=== PATIENT | male | born 1960 | race Caucasian/White ===

== ENCOUNTER 2017-06-20 00:36 | Inpatient (IN) | payer OTHER ==
[~2017-06-20] VITALS: Ht 162.6 cm; Wt 66.7 kg
[~2017-06-20 00:36] MED LIST: ASPI-484 PO; ATOR80TA PO; FENO145T2 PO; LISI-410 PO; METF10002 PO; OMEG1CAP2 PO
[2017-06-20] MEDS ORDERED: PHENERGAN PO ONE (06:00)
[2017-06-20] MEDS ORDERED: VALIUM PO ONE (06:00)
[2017-06-20] MEDS ORDERED: SUBLIMAZE ONE (06:02)
[2017-06-20] MEDS ORDERED: HEPARIN ONE ×2 (06:02→08:02)
[2017-06-20] MEDS ORDERED: VERSED ONE ×2 (06:02→08:39)
[2017-06-20] MEDS ORDERED: XYLOCAINE ONE (06:03)
[2017-06-20 06:10] VITALS: BP 176/100
[2017-06-20 06:15] VITALS: BP 164/98
[2017-06-20] MEDS: NS 1000ML 1,000 ML IV SCH ×3 (06:26→21:51)
[2017-06-20 06:35] LABS: BASOPHIL # 0.1 10^3/uL (0.0-0.1); BASOPHIL % 0.4 % (0.0-0.2); EOSINOPHIL # 0.1 10^3/uL (0.0-0.2); HEMOGLOBIN 15.3 g/dL (13.9-16.3); LYMPHOCYTES # 4.2 10^3/uL (1.0-4.8); LYMPHOCYTES % 33.5 % (24.0-44.0); MEAN CELL HGB 26.4 pg (26-34); MEAN CELL HGB CONCENTRATION 32.1 g/dL (33-37); MEAN CORP VOLUME 82.4 fL (78-100); MEAN PLATELET VOLUME 10.3 fL (7.8-11.0); MONOCYTES # 0.9 10^3/uL (0.3-0.8); MONOCYTES % 6.9 % (5.0-12.0); NEUTROPHIL # 7.1 10^3/uL (1.8-7.7); NEUTROPHILS % 57.4 % (41.0-85.0); RED CELL DISTRIBUTION WIDTH 15.2 % (11.5-14.5); WHITE BLOOD CELL 12.4 10^3/uL (4.5-11.0)
[2017-06-20] MEDS ORDERED: NITROGLYCERIN 25MG/D5W 250ML 250 ML IV ONE (07:55)
[2017-06-20] MEDS ORDERED: CALAN ONE (07:56)
[2017-06-20] MEDS ORDERED: BRILINTA ONE (08:30)
[2017-06-20] MEDS ORDERED: TUMS ONE (08:30)
[2017-06-20] MEDS ORDERED: ASPIRIN ONE (08:30)
[2017-06-20] MEDS ORDERED: LASIX ONE (08:42)
[2017-06-20] MEDS ORDERED: HEPARIN-D5W 20,000 UNIT/500 ML 500 ML IV ONE (08:43)
--- NOTE | 2017-06-20 12:25 | [facility] ---
DATE OF SERVICE: 06/20/2017 PRECATHETERIZATION DIAGNOSES: Abnormal myocardial perfusion scan with ischemic cardiomyopathy, inferoposterior moderate-sized ischemic substrate with global hypokinesis and 28-30% ejection fraction with RCA stenting and severe peripheral arterial disease with bypass surgery with intermittent claudication, both legs. POSTCATHETERIZATION DIAGNOSES: Left main is a fair size vessel, fully patent. LAD is a nondominant vessel, patent. Circumflex is a fair size vessel and is not a dominant vessel, appears to be patent. RCA is a very large dominant vessel with proximal 70% in-stent stenosis with distal posterior descending branch has got a focal 90% stenosis. Left ventricle is dilated with inferoposterior area of severe hypokinesis, anterior mild hypokinesis, ejection fraction of 28-30%. Descending aortic cineangiography shows a totally occluded aorta distally with total occlusion of both common iliacs with significant collateralization with filling of the bypass graft on the left side and subsequently collateralization through the mesenteric vessels and reconstitution of the SFA on the left side, but on the right side, there is only collaterals and panning was done up to the level of the knee and some reconstitution of the popliteal vessel was noted on the right side. Hence, severe peripheral arterial disease with collateralization with occlusion of the bypasses and severe distal ischemia. PCI was performed of the right coronary artery with distal primary stenting of the distal posterior descending branch, primary PCI with 2.25 mm x 12 mm stent placement and proximal PTCA with scoring balloon followed by stenting with 3.25 x 23 mm Xience proximal stent. Distal stent was also Alpine Xience stent. PREOPERATIVE MEDICATIONS: Phenergan 50 mg p.o., Valium 2.5 mg p.o., 3 mg of Versed and 37.5 mcg of fentanyl IV was given. NARRATION OF PROCEDURE: The procedure was done through the right radial approach and right radial artery was punctured with a micropuncture kit and a 6-Somali Nitinol sheath was introduced and a guidewire was introduced and subsequently a Fairdealing 6-Somali catheter was introduced over the guidewire into the ascending aorta and the selective cannulation of left coronary artery was achieved. Left coronary arteriography performed in NIUEAN and TERRY projection followed by subsequent cannulation of the right coronary artery and right coronary arteriography performed in the NIUEAN and AP projection. This catheter was then exchanged over the guidewire with a 6-Somali pigtail catheter, which was navigated across the aortic valve and left ventriculography was performed with 30 mL of Isovue at 12 mL per second at 600 PSI. Subsequently, a pigtail catheter was navigated down the descending aorta and descending aortic cineangiography was performed with 45 mL of Isovue at 25 mL per second. Descending aortic cineangiography was performed with panning up to the level of both SFAs. Subsequently, a guiding catheter, JR4 6-Somali right coronary Marycarmen catheter was introduced into the right coronary artery and PCI was performed by Dr. Oakley with a primary stenting of the distal posterior descending branch and subsequently scoring balloon PTCA of the proximal RCA followed by deployment of the stent. Good results were obtained. The patient tolerated the procedure well. Subsequently, T-band was placed on the right wrist. The patient received heparin. Total of 11,000 units of heparin was given and the ACT was maximum of 325 seconds, heparin drip at 800 units per hour was continued for 12 hours after the procedure. The patient sent to the floor. 20 of Lasix IV was given, LVEDP was about 10 mm, LV pressure was 130/ across the aorta. FINAL CONCLUSION: Patent left main, LAD, nondominant vessel, fully patent. Circumflex fair size vessel, fully patent. Large, dominant RCA with proximal in-stent 70% stenosis and distal posterior descending branch focal 90% stenosis with PCI performed with a scoring balloon PTCA of the proximal lesion followed by stenting with a 3.25 x 23 mm stent and distal 2.25 x 12 mm primary stenting of the posterior descending branch. The patient tolerated the procedure well. No complication of the procedure. Ayden Pratt MD DR: TONI/sweta JOB# [id number]
[2017-06-20] MEDS: NORCO 5MG PO PRN ×2 (12:43→23:45)
[2017-06-20] MEDS: HUMULIN R SQ SCH ×2 (12:56→17:08)
[2017-06-20] MEDS: LOVAZA PO SCH (12:58)
--- NOTE | 2017-06-20 13:01 | NUR ---
TR BAND REMOVAL 2CC REMOVED. NEGATIVE S/S BLEEDING NOTED.
[2017-06-20] MEDS: ZESTRIL PO SCH ×2 (13:19→16:25)
--- NOTE | 2017-06-20 13:21 | NUR ---
TR BAND REMOVAL 2CC REMOVED. NO S/S BLEEDING NOTED. MEDICATED WITH LISINOPRIL 20MG PO FOR BP 154/102. DAILY DOSAGE SKIPPED THIS AM FOR HEART CATH.
--- NOTE | 2017-06-20 13:45 | NUR ---
TR BAND REMOVAL 2CC REMOVED. NEGATIVE S/S BLEEDING NOTED.
--- NOTE | 2017-06-20 14:00 | NUR ---
TR BAND REMOVAL 2CC REMOVED. NEGATIVE S/S BLEEDING NOTED.
[2017-06-20 14:01] LABS: CALCIUM 9.7 mg/dL (8.4-10.5); CARBON DIOXIDE 25.1 mmol/L (20.0-32)
--- NOTE | 2017-06-20 14:15 | NUR ---
TR BAND REMOVAL 2CC REMOVED. NEGATIVE S/S BLEEDING NOTED.
--- NOTE | 2017-06-20 14:30 | NUR ---
TR BAND REMOVAL 2CC REMOVED. NEGATIVE S/S BLEEDING NOTED.
--- NOTE | 2017-06-20 14:45 | NUR ---
TR BAND REMOVAL 2CC REMOVED. NEGATIVE S/S BLEEDING NOTED.
--- NOTE | 2017-06-20 15:00 | NUR ---
TR BAND REMOVED. GAUZE PRESSURE DRESSING APPLIED AND COVERED WITH TRANSPARENT DRESSING. NEGATIVE S/S BLEEDING NOTED. INSTRUCTED TO LEAVE DRESSING IN PLACE X24 HOURS. INSTRUCTED TO REPORT BLEEDING IMMEDIATELY TO NURSE. INSTRUCTED TO AVOID LIFTING OVER 5 POUNDS FOR 5 DAYS, AVOID SUBMERGING ARM IN WATER AND AVOID PUSHING UP OFF BED WITH USE OF HAND. PATIENT VERBALIZES UNDERSTANDING. REPORT GIVEN TO FLORIAN FARIAS. CARE RELINQUISHED TO RN.
[2017-06-20] MEDS ORDERED: LASIX IV STA (16:16)
[2017-06-20 16:24] VITALS: BP 159/89
--- NOTE | 2017-06-20 16:30 | NUR ---
REPORT RECEIVED FROM NURSE SASKIA DU ON THE PT , PER NURSE SASKIA DU, DR. AMADOR WAS NOTIFIED REGARDING THE RAISING BLOOD PRESSURE OF PT, AROUND 1614 RECEIVED THE TELEPHONE ORDER VIA TEXT FROM DR. DAVALOS FOR LASIX 20 MG IV STAT, LISINOPRIL TO INCREASE TO 40 MG DAILY AND TO START TORSEAMINE 20 MG PO DAILY. ADMINSITERED LASIX PER ORDER AND 20 MG LISINOPRIL PT GOT 20 MG EARLIER THIS MORNING FOR NURSE SASKIA DU. LOBITO CONTINUE TO MONITOR THE Pt
--- NOTE | 2017-06-20 17:36 | NUR ---
REASSESSED BP IT IS 134/92 RIGHT NOW P 76, O2 SAT 95% RA.
[2017-06-20 19:00] VITALS: BP 153/82
[2017-06-20 19:27] VITALS: BP 147/72
[2017-06-20] MEDS ORDERED: LIPITOR PO SCH (21:00)
[2017-06-20] MEDS: COREG PO SCH (21:52)
[2017-06-20 23:41] VITALS: BP 153/82
[2017-06-21] VITALS: BP 147/72
[2017-06-21] MEDS ORDERED: ZESTRIL PO STA (00:04)
[2017-06-21 04:00] VITALS: BP 138/83
[2017-06-21] MEDS: NS 1000ML 1,000 ML IV SCH ×2 (06:00→10:03)
--- NOTE | 2017-06-21 06:30 | NUR ---
Report Received report and assumed care of pt
[2017-06-21] MEDS: HUMULIN R SQ SCH ×2 (07:18→11:30)
[2017-06-21 07:49] VITALS: BP 138/80
[2017-06-21] MEDS ORDERED: ASPIRIN EC PO SCH (09:00)
[2017-06-21] MEDS ORDERED: HEPARIN-D5W 20,000 UNIT/500 ML 500 ML IV ONE (09:00)
[2017-06-21] MEDS ORDERED: TRICOR PO SCH (09:00)
[2017-06-21] MEDS ORDERED: DEMADEX PO SCH (09:00)
[2017-06-21] MEDS ORDERED: ZESTRIL PO SCH ×2 (09:00)
[2017-06-21] MEDS ORDERED: PROTONIX PO SCH (09:00)
[2017-06-21] MEDS ORDERED: PLAVIX PO SCH (09:00)
[2017-06-21] MEDS: COREG PO SCH (09:57)
[2017-06-21] MEDS ORDERED: CLOP75TA PO (10:03)
[2017-06-21] MEDS ORDERED: LISI-410 PO (10:03)
[2017-06-21] MEDS ORDERED: CARV3.122 PO (10:03)
[2017-06-21] MEDS: NORCO 5MG PO PRN (10:03)
[2017-06-21] MEDS ORDERED: HYDR-926 PO (10:03)
[2017-06-21] MEDS ORDERED: ATOR40TA PO (10:03)
[2017-06-21] MEDS ORDERED: INSU100V5 SQ (10:03)
[2017-06-21] MEDS ORDERED: PANT40TA3 PO (10:03)
[2017-06-21] MEDS ORDERED: TORS20TA PO (10:03)
--- NOTE | 2017-06-21 10:59 | [facility] ---
DATE OF SERVICE: 06/20/2017 PROCEDURES PERFORMED: 1. Angioplasty of the RCA with scoring balloon and drug-eluting stent. 2. Primary angioplasty of the right PDA with primary stenting using drug-eluting stent. 3. Heparin infusion with ACT monitoring. COMPLICATIONS: None related to this procedure. INDICATIONS: Please refer to Dr. Ayden Pratt's operative report for indications, preoperative diagnoses and angiographic findings. In short, the patient is a 56-year-old gentleman, vasculopathic with extensive vascular and coronary artery disease. He was elected for coronary angiography and possible angioplasty by Dr. Pratt. DESCRIPTION OF PROCEDURE: Dr. Pratt performed a right radial access diagnostic coronary angiography, identifying a significant severe in-stent restenosis in the proximal RCA and a de tammy lesion in the proximal RPDA. Both were severe diseases. Those findings were consistent with abnormality on the stress test as per Dr. Pratt. Therefore, I was requested to assess in the interventional part of the procedure. At that point, heparin was given for therapeutic dose followed by advancing a 6-Salvadorean JR4 interventional catheter. A run-through wire was advanced across the RCA into the RPDA. The RPDA received a 2.25 x 12 Xience Alpine drug-eluting stent for angioplasty with excellent results and no complication with TIMI3 flow. The proximal RCA received treatment initially with 3.0 x 15 scoring balloon for primary angioplasty of severe in-stent restenosis around 80-85%. This was followed by the deployment of 3.25 x 23 Xience Alpine drug eluting stent with excellent results, no complication noted. There was damping effect with catheter engagement indicating the hemodynamic significance of the lesion which is also consistent with the finding on the nuclear imaging study. The case was concluded successfully with removal of wires and catheters and application of TR band at the right radial artery access site. ACT was therapeutic. The patient received antiplatelet therapy a loading dose. IMPRESSION: 1. Successful angioplasty of the right coronary artery as well as the RPDA using scoring balloon and 2 drug-eluting stents. 2. The procedure was well tolerated. RECOMMENDATIONS: 1. Dual antiplatelet therapy. 2. Optimize medical management for coronary artery disease therapy. 3. Further cardiac management and recommendation as per the discretion of Dr. Pratt. Thank you, Dr. Pratt for allowing me to participate in management of the patient. Bobo Oakley MD DR: Waldo JOB# [id number]
--- NOTE | 2017-06-21 11:33 | HPH ---
ADMIT DATE: 06/20/2017 CHIEF COMPLAINT: Post-PCI of the right coronary artery. HISTORY OF PRESENT ILLNESS: The patient is a 56-year-old white male who is a and came from the [facility], who has got peripheral arterial bypass surgery and prior old NM with underlying history of hypertension, hypertensive heart disease and non-insulin dependent diabetic and he had a very positive perfusion study with inferoposterior ischemic substrate with LV cavity dilatation and ischemic cardiomyopathy, low ejection fraction of 28-30% and probably needs an ICD because of chronic low systolic function, but he underwent cardiac catheterization and in-stent stenosis of the right coronary artery with almost 70% stenosis in the proximal RCA noted and distal posterior descending branch had a critical focal 90% stenosis and hence primary stenting of the distal posterior descending branch and scoring balloon dilatation followed by placement of the stent in the proximal RCA via right radial approach was done and patient was admitted in the hospital and observed. ALLERGIES: NONE KNOWN. MEDICATIONS: He goes to the [facility] and his medications have been very erratic in nature and he is not on any optimum medical therapy. He has been on Lipitor 80 mg once a day, Coreg 3.125 mg twice a day and Plavix 75 mg once a day, hydrocodone 5/325 one tablet q.4 hours p.r.n. and he is on sliding scale insulin coverage along with lisinopril 20 mg once a day and Protonix 40 mg once a day, torsemide 20 mg once a day and metformin 1 gram daily and aspirin 81 mg once a day, omega-3 and fenofibrate, I am not sure why he is on Lovaza, omega 3 along with fenofibrate, and high dose statin, Lipitor 80 mg once a day. PAST MEDICAL HISTORY: Peripheral arterial bypass surgery, he has got intermittent claudication and has got severe ischemia in the right leg worse than left and trophic changes in both feet due to severe peripheral ischemic manifestations and history of dyspnea and symptoms of shortness of breath and leg edema and chest heaviness, tightness and positive perfusion study. SOCIAL HISTORY: Prior history of almost [id number] history of smoking, no history of any ethanol abuse. FAMILY HISTORY: Positive for heart problems. My office notes show the details of all his past history in a chronological order and they are on the chart PHYSICAL EXAMINATION: GENERAL: He was alert, awake and oriented post-procedure. VITAL SIGNS: He has got a weight of 66 kilograms and height of 162 cm, BMI 25.2 and his pulse was 58-60, blood pressure was 130/70, respiration 18. HEENT: Unremarkable. NECK: No JVD, no carotid bruits. Poor general hygiene. LUNGS: Lungs were showing poor air entry bilaterally. HEART: Sounds S1, S2 normal. ABDOMEN: Soft, nontender, no organomegaly. Hemostasis achieved in the right wrist after the radial procedure. EXTREMITIES: Distal pulses were poorly felt and bruits were noted all over the abdomen because of his peripheral arterial disease and he has got paraumbilical bruits and bruits on both femorals and very poorly palpable femoral and distal pulses were poorly felt and has got ischemic trophic changes in both feet and some degree of muscle wasting is noted. NEUROLOGIC: No lateralizing motor deficit is documented. IMPRESSION: Post-PCI. PLAN: At this time, admit the patient to the hospital observation and continue dual antiplatelet therapy and because of the nature of the procedure, 12 hours of IV heparinization to be continued and further management depending on the clinical course. Ayden Pratt MD DR: TONI/sweta JOB# [id number]
[2017-06-21 11:37] VITALS: BP 156/93
[2017-06-21] MEDS: LOVAZA PO SCH (13:00)
--- NOTE | 2017-06-21 13:00 | NUR ---
DISCHARGE PLAN CM VISITED WITH PATIENT CONCERNING HIS DISCHARGE PLAN AND NEED. PATIENT STATED HE LIVES ALONE IN [place], [place] BUT HE HAS A GREAT FAMILY SUPPORT SYSTEM. HE STATED HE HAS JUST RECENTLY STARTED USING A WALKER WITH WHEELS DUE TO PAIN IN RT LEG. [facility] AND HIS PCP [facility] @ [facility] [place], [place]. PATIENT VOICED CONCERN REGARDING HIS NEW PRESCRIPTIONS VERSES COST. CM REACHED OUT TO THE [facility] @ [phone] AND SPOKE TO LIGIA. LIGIA STATED THAT DR. AMADOR'S OFFICE WOULD HAVE TO FAX AUTH# CHOICE FOR CARDIAC CATH AND NEW PRESCRIPTIONS TO [facility] IN ORDER FOR [facility] TO COVER MEDICATION COSTS. CM REACHED OUT TO DR. AMADOR'S AND SPOKE TO HIS NURSE CARISSA MONSON WHOM STATED SHE WOULD FAX INFORMATION NOW. CM MADE A FOLLOW UP VISIT TO PATIENT AND EDUCATED HIM ON THE PROCESS OF HIS NEW MEDICATION SCRIPTS WITH VERBAL UNDERSTANDING BY BOTH PATIENT AND HIS BROTHER. PATIENT DENIES FURTHER NEEDS @ THIS TIME WITH CONTACT INFORMATION PROVIDED. 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 NO FURTHER CM OR DISCHARGE NEEDS KNOWN @ THIS TIME. CM NOTIFIED BOTH Jair POP RN AND Dorina RODARTE EQUINE DENTIST NURSE OF ABOVE DOCUMENTATION.
--- NOTE | 2017-06-21 14:37 | NUR ---
Discharge Discharge instructions given to pt. Educated pt on new medications. pt able to verbalize understanding. educated pt on importance of follow up appt with Dr. Pratt. Pt able to verbalize understanding. Answered all pt questions. Pt denies further questions or concerns. Pt transferred off unit via wheelchair to personal vehicle. No s/s of distress noted.
--- NOTE | 2017-06-21 18:47 | DSH ---
DATE OF DISCHARGE: 06/21/2017 FINAL DIAGNOSES: Positive perfusion study, myocardial perfusion imaging, angina, chronic systolic heart failure, ischemic cardiomyopathy, 28-30% ejection fraction, post-PCI with the distal posterior descending branch primary stenting and proximal RCA 80% in-stent stenosis with a scoring balloon dilatation followed by stent placement on 06/20/2017 and 28-30% ejection fraction and non-insulin dependent diabetes mellitus, severe peripheral artery disease, total occlusion of the aorta after the bifurcation with collateralization of the vessel in both superficial femoral artery and some visualization of the Dacron graft in the left side, but a complete occlusion of both iliacs and reconstitution of the left superficial femoral artery was documented, occluded at the level of the popliteal bilaterally. No constitution of the superficial femoral artery noted on the right side and some reconstitution of the distal portion close to the popliteal was documented. Distal circulation was not assessed, non-insulin diabetes mellitus. Please refer to my history and physical to the point of my impression. HOSPITAL COURSE: The patient is a 56-year-old white male who has a positive perfusion study, peripheral arterial disease, post-bypass surgery, intermittent claudication, shortness of breath, symptoms of congestive heart failure, presented with angina, shortness of breath and is a heavy smoker and underwent a myocardial perfusion imaging, which was positive for ischemic substrate in the inferior posterior wall with echo showing 28-30% ejection fraction and he underwent cardiac catheterization, above procedure was done and he did well and 12 hours of IV heparinization initiated. At the present time, he is being dismissed on Lipitor 80 mg once a day, Coreg 3.125 mg twice a day, Plavix 75 mg once a day, [place] 5-325 one tablet q.4 hours p.r.n. and he is on sliding scale insulin coverage, lisinopril has been increased to 40 mg once a day, Protonix 40 mg once a day, torsemide 20 mg once a day, aspirin 81 mg once a day, metformin 1 gram twice a day to be initiated on 06/23/2017 after the procedure and omega 3 fatty acids and I stopped his fenofibrate and changed lisinopril from 20 to 40, see me back in the clinic in 2 weeks. After 3 months if the EF is still low, then we will require an ICD for primary prevention, VT and sudden cardiac protection. Ayden Pratt MD DR: TONI/sweta JOB# [id number]
== END 2017-06-21 15:40 | disposition home or self-care (01) | DRG 247 ==
LOC: SURG 00:36 → MS 09:46 → OBSVTOIN 12:41
PROVIDERS: ADMIT Specialist; ATTEND Specialist
PROC: 027135Z Dilation of Coronary Artery, Two Arteries with Two Drug-eluting Intraluminal Devices, Percutaneous Approach (ICD-10-PCS; principal; 2017-06-20)
PROC: 4A023N7 Measurement of Cardiac Sampling and Pressure, Left Heart, Percutaneous Approach (ICD-10-PCS; 2017-06-20)
PROC: B2111ZZ Fluoroscopy of Multiple Coronary Arteries using Low Osmolar Contrast (ICD-10-PCS; 2017-06-20)
PROC: B2151ZZ Fluoroscopy of Left Heart using Low Osmolar Contrast (ICD-10-PCS; 2017-06-20)
DX: T82.855A Stenosis of coronary artery stent, initial encounter (principal); E11.51 Type 2 diabetes mellitus with diabetic peripheral angiopathy without gangrene; I25.82 Chronic total occlusion of coronary artery; I50.22 Chronic systolic (congestive) heart failure; I11.0 Hypertensive heart disease with heart failure; Y83.1 Surgical operation with implant of artificial internal device as the cause of abnormal reaction of the patient, or of later complication, without mention of misadventure at the time of the procedure; T82.898A Other specified complication of vascular prosthetic devices, implants and grafts, initial encounter; I25.119 Atherosclerotic heart disease of native coronary artery with unspecified angina pectoris; I25.5 Ischemic cardiomyopathy; I25.2 Old myocardial infarction; Z87.891 Personal history of nicotine dependence; Z95.5 Presence of coronary angioplasty implant and graft; Z79.82 Long term (current) use of aspirin; Z79.02 Long term (current) use of antithrombotics/antiplatelets; Z79.84 Long term (current) use of oral hypoglycemic drugs; Z79.899 Other long term (current) drug therapy; Y92.89 Other specified places as the place of occurrence of the external cause
CPT/HCPCS: 36415; 71046; 75630; 80053; 80061; 82948; 85025; 85610; 85730; 93458; 99152; 99153; C1769; C1887; C1894; C9600; C9601; G0378; J1644; J2250; J3010; J3490; J7030; Q9967; J1940